=== PATIENT | male | born 1980 | race Caucasian/White ===

== ENCOUNTER 2019-04-29 20:12 | Inpatient (IN) | payer OTHER ==
[~2019-04-29] VITALS: Ht 188 cm; Wt 81.6 kg
[2019-04-29 20:40] VITALS: BP 129/92
[2019-04-29] MEDS ORDERED: KEFLEX500 M2 PO (20:48)
[2019-04-29 21:55] LABS: ABSOLUTE NEUTROPHILS 8.4 thou/uL (1.4-8.2); BASOPHILS 0.7 % (0.0-2.0); EOSINOPHILS 2.3 % (0.0-3.0); HEMATOCRIT 40.4 % (42.0-52.0); HEMOGLOBIN 13.6 gm/dL (14.0-18.0); LYMPHOCYTES 24.8 % (24.0-44.0); MCH 32.2 pg (26.0-34.0); MCHC 33.7 g/dL (28.0-37.0); MCV 95.6 fL (80.0-100.0); MONOCYTES 9.8 % (1.0-8.0); PLATELET COUNT 288 thou/uL (150-400); POLYS 62.4 % (36.0-66.0); RBC 4.23 mil/uL (4.50-6.00); RDW 13.1 % (10.5-14.5); WBC 13.4 thou/uL (4.0-11.0)
[2019-04-29 22:07] LABS: ANION GAP 7 mmol/L (7-16); BUN 16 mg/dL (7-18); CALCIUM 8.7 mg/dL (8.5-10.1); CHLORIDE 105 mmol/L (98-107); CO2 30 mmol/L (21-32); CREATININE 0.9 mg/dL (0.7-1.3); GLUCOSE 99 mg/dL (74-106); POTASSIUM 4.1 mmol/L (3.5-5.1); SODIUM 142 mmol/L (136-145)
[2019-04-29 22:12] LABS: ALBUMIN 3.7 g/dL (3.4-5.0); DIRECT BILIRUBIN < 0.1 mg/dL (<0.1-0.3); LIPASE 138 U/L (73-393); SGOT 21 U/L (15-37); SGPT 39 U/L (30-65); TOTAL BILIRUBIN 0.2 mg/dL (<0.1-1.0); TOTAL PROTEIN 6.9 g/dL (6.4-8.2)
[2019-04-29 22:18] LABS: URINE BILIRUBIN NEGATIVE (Negative); URINE BLOOD NEGATIVE (Negative); URINE CLARITY CLEAR; URINE COLOR YELLOW; URINE GLUCOSE-RANDOM* NEGATIVE (Negative); URINE KETONES NEGATIVE (Negative); URINE LEUKOCYTES NEGATIVE (Negative); URINE NITRITE NEGATIVE (Negative); URINE PROTEIN (DIPSTICK) NEGATIVE (Negative); URINE UROBILINOGEN 0.2 E.U./dl (0.2-1.0)
[2019-04-29 23:40] VITALS: BP 124/82
[2019-04-29 23:48] VITALS: BP 124/82
[2019-04-30 00:20] VITALS: BP 141/87
--- NOTE | 2019-04-30 02:06 | NUR ---
PT WAS ADMITTED TO THE UNIT FROM THE ER IN A STABLE CONDITION.ADMISSION HX,EDUCATION AND ASSESSMENT COMPLETED.PT'S PAIN AT 5/10 ON ADMISSION,PT STATED IT WAS TOLERABLE PROVIDED HE DOESN'T MOVE THE LEG.PT'S L KNEE WAS RED,WARM AND SWOLLEN.FALL PRECAUTIONS IN PLACE.CALL LIGHT WITHIN REACH.
[2019-04-30 04:17] VITALS: BP 113/72
[2019-04-30 04:56] LABS: HEMATOCRIT 36.9 % (42.0-52.0); HEMOGLOBIN 12.5 gm/dL (14.0-18.0); MCH 32.6 pg (26.0-34.0); MCHC 33.9 g/dL (28.0-37.0); MCV 96.1 fL (80.0-100.0); RBC 3.84 mil/uL (4.50-6.00); RDW 13.4 % (10.5-14.5); WBC 11.1 thou/uL (4.0-11.0)
[2019-04-30 05:07] LABS: CALCIUM 8.1 mg/dL (8.5-10.1); CREATININE 0.8 mg/dL (0.7-1.3)
[2019-04-30 07:00] VITALS: BP 111/74
[2019-04-30 11:46] LABS: BF CRYSTALS No Crystals seen; SOURCE SYNOVIAL
[2019-04-30 11:52] LABS: CLARITY TURBID; COLOR RED; SOURCE SYNOVIAL; TOTAL VOLUME 2 mL
[2019-04-30 12:38] LABS: BF NUCLEATED CELLS 28085; BF RBC 145583
[2019-04-30 13:03] LABS: BF NEUTROPHILS 99
[2019-04-30 13:04] LABS: BF MACROPHAGE 0
[2019-04-30 13:57] LABS: SOURCE SYNOVIAL
--- NOTE | 2019-04-30 14:35 | NUR ---
PT ADMITTED RELATED TO L KNEE PAIN,SEPTIC L KNEE. CM REVIEWED CHART AND SPOKE WITH CARE TEAM. CM MET WITH PT AT BEDSIDE THIS DAY. PT INDICATED HE LIVES IN A HOUSE WITH HIS FIANCE AND THEIR BABY. PT INDICATED THERE ARE 3 STEPS TO ENTER AND NO STEPS INSIDE. 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 PT INDICATED NO DME OF HH HX. PT INDICATED HIS PCP IS DR. NEELY AT [facility]. PT INDICATED HE PLANS TO RETURN HOME ONCE MEDICALLY STABLE. CM TO FOLLOW INDICATED WITH DC PLANNING.
[2019-04-30 15:25] VITALS: BP 120/83
[2019-04-30 19:27] VITALS: BP 118/76
--- NOTE | 2019-05-01 02:04 | NUR ---
PT C/O PAIN ON HIS KNEE,MANAGED WITH MEDICATION.UP ADLIB IN ROOM WITH A STEADY GAIT.IVF AND IV ABX INFUSING ORDERED.L KNEE IMPROVING,LESS SWELLING NOTED COMPARED TO ADMISSION.PT ABLE TO MAKE HIS NEEDS KNOWN.CALL LIGHT WITHIN REACH.
[2019-05-01 04:16] VITALS: BP 116/81
[2019-05-01 05:13] LABS: HEMATOCRIT 37.3 % (42.0-52.0); HEMOGLOBIN 12.9 gm/dL (14.0-18.0); MCH 32.9 pg (26.0-34.0); MCHC 34.5 g/dL (28.0-37.0); MCV 95.3 fL (80.0-100.0); RBC 3.92 mil/uL (4.50-6.00); RDW 13.4 % (10.5-14.5); WBC 9.1 thou/uL (4.0-11.0)
[2019-05-01 05:37] LABS: CALCIUM 8.6 mg/dL (8.5-10.1); CREATININE 0.8 mg/dL (0.7-1.3); POTASSIUM 4.5 mmol/L (3.5-5.1)
[2019-05-01 07:41] VITALS: BP 114/82
[2019-05-01 18:05] LABS: BODY FLUID GLUCOSE 4 mg/dL (()); BODY FLUID LDH 1898 IU/L (()); BODY FLUID PROTEIN 3.6 g/dL (())
--- NOTE | 2019-05-01 19:13 | HC ---
[facility] [place] [address] CONSULTATION Name: CONSTANTINE CROWLEY Room #: 417-I ADM IN ..#: [id number] Admission: 04/29/19 ������������������ Attend Phys: Mateo Rodríguez MD Discharge: ������������������ Date of : 76 Report #: [id number] THIS REPORT FOR: //name// CC: Rudolph Dominguez [facility] physician/PCP Mateo Rodríguez DATE OF SERVICE: 04/30/2019 INFECTIOUS DISEASE CONSULTATION REASON FOR CONSULTATION: Evaluate left knee swelling. 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 Presents now with a 2-week history of increased pain and swelling in the left prepatellar bursa region. Initially treated with prednisone, did not improve and prednisone was repeated and given Keflex for a week. Despite this, he continued to have increased pain and swelling. This worsened and he presented to the Emergency Room yesterday for further evaluation. X-ray of the knee did show evidence of fluid in the prepatellar space. Attempt at aspirating the joint failed. He was placed on vancomycin and admitted for further evaluation. No fever, chills or sweats. No other joints causing troubles. The patient does spend a lot of time on his knees during his work activities. He does use knee pads as much as possible. REVIEW OF SYSTEMS: He has had no nausea, vomiting or diarrhea. No fever, chills or sweats. No cough or sputum production. No other illness noted. A full 10-point review was negative other than described above. ALLERGIES: None known. MEDICATIONS: As noted on his MAR, which were reviewed including vancomycin at this time. PAST MEDICAL HISTORY: Left prepatellar bursitis, has otherwise been healthy. Also, has depression and anxiety. FAMILY HISTORY: Noncontributory. SOCIAL HISTORY: He is a smoker of cigarettes. No significant alcohol intake. PHYSICAL EXAMINATION: VITAL SIGNS: He is afebrile, hemodynamically stable. GENERAL: He is alert and cooperative and pleasant, in no acute distress. HEENT: Eyes, without scleral icterus. Mouth without mucositis. [facility] [address] [place] [address] CONSULTATION Name: CONSTANTINE CROWLEY Room #: 417-I [facility].#: [id number] Admission: 04/29/19 ������������������ Attend Phys: Mateo Rodríguez MD Discharge: ������������������ Date of : 76 Report #: [id number] NECK: Supple. LUNGS: Clear to auscultation. HEART: Regular, without murmur, gallop or rub. ABDOMEN: Soft and nontender with no hepatosplenomegaly or mass. EXTREMITIES: Left knee had swelling over the prepatellar bursa. There were surrounding erythema and tenderness. He had limited range of motion due to discomfort in the anterior knee. There was no joint effusion identified. SKIN: Otherwise, unremarkable with no rash or lesions. He had no palpable adenopathy. NEUROLOGIC: Mood was normal. Cranial nerves intact and strength in his lower extremities was normal with sensation intact. LABORATORY STUDIES: Reviewed. Cultures are pending. X-ray as noted above. IMPRESSION: 1. A 39-year-old with left prepatellar bursitis that has failed outpatient therapy with cephalexin for 1 week. Also, was given corticosteroids, which may affect his response. Would suspect this to be staphylococcal or streptococcal in nature. 2. Depression and anxiety, controlled. 3. Tobacco user. RECOMMENDATIONS: I have discussed with Orthopedic Surgery. At this point in time, we will hold off on surgical intervention. Aspiration was completed this morning. Small amount of fluid was able to be expressed. We will give 24 to 48 hours of IV antibiotic and see if we can get some response to treatment. If not, he will require operative debridement and drainage. This was discussed with the patient who was in agreement with this plan of care. ��������������������������������������������� <ELECTRONICALLY SIGNED> ���������������������������������������� By: Mack Prasad MD ��������������������������������������������� 05/01/19 1913 2233 21 Mack Prasad MD /nt
[2019-05-01 20:00] VITALS: BP 122/86
--- NOTE | 2019-05-02 00:41 | NUR ---
ASSESSMENT COMPLETED.PAIN MED ADMINISTERED X1 FOR C/O KNEE PAIN,EFFECTIVE.DR CORRAL HERE DURING SHIFT CHANGE TO SEE PT. UP ADLIB IN ROOM WITH A STEADY GAIT.LESS SWELLING AND REDNESS NOTED ON HIS KNEE. PT RESTING ON HIS BED AT THIS TIME.CALL LIGHT WITHIN REACH.
[2019-05-02 03:30] VITALS: BP 124/84
[2019-05-02 07:16] VITALS: BP 128/83
--- NOTE | 2019-05-02 10:20 | NUR ---
ASSESMENT COMPLETED. VSS. A/O. PAIN MANAGED BY MEDS ORDERED. NO NOTED SOA. NO NV. UP AD LAURA IN ROOM. RED KNEE SWOLLEN AND WARM. WILL CONT. TO MONITOR.
[2019-05-02 16:32] VITALS: BP 128/82
[2019-05-02 19:51] VITALS: BP 121/88
--- NOTE | 2019-05-03 00:56 | NUR ---
ASSESSMENT COMPLETED. PT IS ALERT AND ORIENTED. UP AD LAURA IN ROOM. GIVEN PAIN MEDS FOR L KNEE PAIN OF A 8/10-RELIEF OBTAINED. KNEE REMAINS WITH SOME SWELLING AND TENDERNESS. NO ERYTHEMA. PT TOOK A SHOWER. CONTINUES ON IV FLUIDS AND ABTS. AFEBRILE. WILL CONTINUE WITH POC TILL EOS.
[2019-05-03 04:51] VITALS: BP 122/76
[2019-05-03 05:42] LABS: HEMATOCRIT 39.8 % (42.0-52.0); HEMOGLOBIN 13.5 gm/dL (14.0-18.0); MCH 32.6 pg (26.0-34.0); MCHC 34.1 g/dL (28.0-37.0); MCV 95.7 fL (80.0-100.0); RBC 4.16 mil/uL (4.50-6.00); RDW 13.4 % (10.5-14.5); WBC 8.5 thou/uL (4.0-11.0)
[2019-05-03 05:51] LABS: CALCIUM 8.5 mg/dL (8.5-10.1); CREATININE 0.8 mg/dL (0.7-1.3); POTASSIUM 3.9 mmol/L (3.5-5.1)
[2019-05-03 07:41] VITALS: BP 111/83
--- NOTE | 2019-05-03 10:51 | NUR ---
Assumed care of pt at 0700. Pt alert and oriented x4. C/o pain in left knee. Pain controlled with prn pain meds. Tenderness and swelling in left knee. IVF and antibiotics infusing. Call light within reach. Will continue to monitor.
[2019-05-03] MEDS ORDERED: BACTRIM DS TAB1 EACH PO (13:05)
[2019-05-03] MEDS ORDERED: KEFLEX500 M1 PO (13:05)
[2019-05-03 13:19] VITALS: BP 111/83
--- NOTE | 2019-05-07 12:48 | HC ---
[facility] [place] [address] CONSULTATION Name: CONSTANTINE CROWLEY Room #: 417-I [facility]#: [id number] Admission: 04/29/19 ������������������ Attend Phys: Mateo Rodríguez MD Discharge: 05/03/19 ������������������ Date of : 76 Report #: [id number] THIS REPORT FOR: //name// CC: Rudolph Dominguez [facility] physician/PCP Mateo Rodríguez DATE OF SERVICE: 04/30/2019 HISTORY OF PRESENT ILLNESS: This 39-year-old gentleman complains of left knee pain and swelling, which has been a problem over the past several days. He recalls no specific accidents or injuries. He notes swelling and redness advance over the past 24 hours and he presented to the Emergency Department here. Findings were then consistent with cellulitis or possible joint infection. They attempted a knee joint aspiration, but were unable to return any fluid. He was admitted and started on antibiotics. Today, at the time of my evaluation, he notes his pain, redness and swelling of the left knee have all improved somewhat. His discomfort and swelling is principally in the prepatellar bursal region. He does, however, note some mild discomfort involving the left knee joint. Objectively, there is an obvious [id number] prepatellar bursitis with a small amount of fluid collection. There is no skin abrasion and no drainage. The knee joint itself does not seem to have a joint effusion and there is no significant joint irritability with range of motion. X-rays of left knee reveal no bony abnormalities. I think this is primarily a prepatellar bursitis with associated cellulitis. I have elected to go ahead with aspiration, principally for culture. The prepatellar bursa was aspirated, removing about 3 mL of bloody tinged fluid. There was no obvious purulence. No other abnormalities were identified. The specimen was sent for fluid analysis, cell count and culture. The knee joint itself does not seem to be involved and I did not attempt aspiration of the joint itself. He is currently on empiric IV antibiotics. I have discussed the issue with Dr. Prasad. I suspect we can move him to outpatient antibiotics and proceed with discharge either today or tomorrow. I have asked the patient to let me know if there should be any further flare or excessive pain or swelling. If there is unresolving bursitis, then a more aggressive open debridement or bursa excision might be considered; at this point, I doubt that will be necessary. [address] [address] CONSULTATION Name: CONSTANTINE CROWLEY Room #: 417-I [facility]#: [id number] Admission: 04/29/19 ������������������ Attend Phys: Mateo Rodríguez MD Discharge: 05/03/19 ������������������ Date of : 76 Report #: [id number] Thank you for allowing me to participate in his care. ��������������������������������������������� <ELECTRONICALLY SIGNED> ���������������������������������������� By: Rudolph Dominguez MD ��������������������������������������������� 05/07/19 1248 1200 [id number] Rudolph Dominguez MD /nt
== END 2019-05-03 13:00 | disposition home or self-care (01) | DRG 558 ==
LOC: ER 20:12 → EROBS 23:12 → 4E 23:12
PROVIDERS: Emergency Medicine; Nurse Practitioner; Nurse Practitioner Family; ADMIT Hospitalist
PROC: 0S9D3ZX Drainage of Left Knee Joint, Percutaneous Approach, Diagnostic (ICD-10-PCS; principal; 2019-04-29)
DX: M70.42 Prepatellar bursitis, left knee (principal); L03.116 Cellulitis of left lower limb; F32.9 Major depressive disorder, single episode, unspecified; F41.9 Anxiety disorder, unspecified; F17.200 Nicotine dependence, unspecified, uncomplicated; Z79.2 Long term (current) use of antibiotics
CPT/HCPCS: 10084